=== PATIENT | female | born 1985 | race Caucasian/White ===

== ENCOUNTER → 2018-04-20 16:19 | Emergency (ER) | payer OTHER ==
[~2018-04-20 16:19] MED LIST: ValACYclovir (*) 1 GM TAB PO ONE
[2018-04-20 17:59] LABS: ABS Basophils 0 10^3/ul (0-0.2); ABS Eosinophils 0.5 10^3/ul (0-0.6); ABS Lymphocytes 1.6 10^3/ul (1.0-4.8); ABS Monocytes 0.5 10^3/ul (0-0.8); ABS Neutrophils 4.4 10^3/ul (1.5-7.7); ABS Nucleated RBC 0 10^3/ul; Hematocrit 41 % (35-47); Hemoglobin 14.2 g/dl (12.0-16.0); Lymphocyte % 22.1 % (25-47); Mean Corpuscular HGB Conc 35 g/dl (31-36); Mean Corpuscular Hemoglobin 32 pg (27-31); Mean Corpuscular Volume 91 fL (80-97); Mean Platelet Volume 8.3 um3 (7.4-10.4); Nucleated Red Blood Cells % 0; Platelet Count 248 10^3/ul (150-450); Red Blood Count 4.49 10^6/ul (4.00-5.40); Red Cell Distribution Width 14 % (10.5-15)
[2018-04-20 18:17] LABS: EGFR Non-African American 70.3 (>60)
--- NOTE | 2018-04-20 19:34 | ED ---
Skin Complaint - HPI Summary HPI Summary: 32-year-old female presents to the rash for the past week. She states it started right hip. She states that is spread since there. She states the rash is itchy. She states the vesicles and blisters that have been popping. Is not on on any medications. No new products or soaps. Was not outside. she has not been in contact with any poison cony. No fevers. No sinus congestion or cough. No other symptoms besides the rash. she did have chickenpox just younger. No history of any rheumatologic or immunologic disorders. No family history of such either. She has been taking Benadryl and calamine lotion to the area. Never had this rash before. No one else is similar rash. Daughter did have two spots but were Different than her rash. no vision changes. - History of Current Complaint Chief Complaint: EDRashSkinAbscess Time Seen by Provider: 04/20/18 17:36 Stated Complaint: BLISTERS ALL OVER BODY Hx Last Menstrual Period: IUD - current Pain Intensity: 0 - Allergy/Home Medications Allergies/Adverse Reactions: Allergies Allergy/AdvReac Type Severity Reaction Status Date / Time amoxicillin Allergy Hives Verified 04/20/18 17:02 PMH/Surg Hx/FS Hx/Imm Hx Endocrine/Hematology History: Denies: Hx Diabetes, Hx Thyroid Disease Cardiovascular History: Denies: Hx Hypertension Respiratory History: Reports: Hx Asthma - seasonal Denies: Hx Chronic Obstructive Pulmonary Disease (COPD) GI History: Denies: Hx Ulcer Infectious Disease History: No Infectious Disease History: Denies: Hx Clostridium Difficile, Hx Hepatitis, Hx Human Immunodeficiency Virus (HIV), Hx of Known/Suspected MRSA, Hx Shingles, Hx Tuberculosis, Hx Known/ Suspected VRE, Hx Known/Suspected VRSA, History Other Infectious Disease, Traveled Outside the [place] in Last 30 Days - Family History Known Family History: Positive: Unknown - Social History Alcohol Use: Rare Substance Use Type: Reports: None Smoking Status (MU): Heavy Every Day Tobacco Smoker Type: Cigarettes Amount Used/How Often: quitting down to 3-5 cigs/day Review of Systems Negative: Fever Negative: Chest Pain Negative: Shortness Of Breath Positive: Rash All Other Systems Reviewed And Are Negative: Yes Physical Exam Triage Information Reviewed: Yes Vital Signs On Initial Exam: Initial Vitals Temp Pulse Resp BP Pulse Ox 99.3 F 103 18 125/81 97 04/20/18 16:59 04/20/18 16:59 04/20/18 16:59 04/20/18 16:59 04/20/18 16:59 Vital Signs Reviewed: Yes Appearance: Positive: Well-Appearing Skin: Positive: Other - vesicles on erythematous base across body, no lesion on feet and hands, some blisters Head/Face: Positive: Normal Head/Face Inspection Eyes: Positive: Normal, EOMI, DARLIN, Conjunctiva Clear ENT: Positive: Normal ENT inspection, Pharynx normal, TMs normal Respiratory/Lung Sounds: Positive: Clear to Auscultation, Breath Sounds Present Cardiovascular: Positive: Normal, RRR Abdomen Description: Positive: Nontender, Soft Bowel Sounds: Positive: Present Musculoskeletal: Positive: Normal Neurological: Positive: Normal Psychiatric: Positive: Normal Diagnostics - Vital Signs Vital Signs Temp Pulse Resp BP Pulse Ox 04/20/18 16:59 99.3 F 103 18 125/81 97 - Laboratory Lab Results: Lab Results 04/20/18 04/20/18 Range/Units 17:51 17:51 WBC 7.0 (3.5-10.8) 10^3/ul RBC 4.49 (4.00-5.40) 10^6/ul Hgb 14.2 (12.0-16.0) g/dl Hct 41 (35-47) % MCV 91 (80-97) fL MCH 32 H (27-31) pg MCHC 35 (31-36) g/dl RDW 14 (10.5-15) % Plt Count 248 (150-450) 10^3/ul MPV 8.3 (7.4-10.4) um3 Neut % (Auto) 63.0 (38-83) % Lymph % (Auto) 22.1 L (25-47) % [place] % (Auto) 7.5 H (0-7) % Eos % (Auto) 7.0 H (0-6) % Baso % (Auto) 0.4 (0-2) % Absolute Neuts (auto) 4.4 (1.5-7.7) 10^3/ul Absolute Lymphs (auto) 1.6 (1.0-4.8) 10^3/ul Absolute Monos (auto) 0.5 (0-0.8) 10^3/ul Absolute Eos (auto) 0.5 (0-0.6) 10^3/ul Absolute Basos (auto) 0 (0-0.2) 10^3/ul Absolute Nucleated RBC 0 10^3/ul Nucleated RBC % 0 ESR 10 (0-14) mm/Hr Sodium 137 (135-145) mmol/L Potassium 4.1 (3.5-5.0) mmol/L Chloride 105 (101-111) mmol/L Carbon Dioxide 27 (22-32) mmol/L Anion Gap 5 (2-11) mmol/L BUN 10 (6-24) mg/dL Creatinine 0.93 (0.51-0.95) mg/dL Est GFR ( Amer) 85.1 (>60) Est GFR (Non-Af Amer) 70.3 (>60) BUN/Creatinine Ratio 10.8 (8-20) Glucose 95 (70-100) mg/dL Calcium 9.2 (8.6-10.3) mg/dL Total Bilirubin 0.30 (0.2-1.0) mg/dL AST 15 (13-39) U/L ALT 9 (7-52) U/L Alkaline Phosphatase 42 (34-104) U/L C-Reactive Protein 6.03 (<8.01) mg/L Total Protein 6.5 (6.4-8.9) g/dL Albumin 4.0 (3.2-5.2) g/dL Globulin 2.5 (2-4) g/dL Albumin/Globulin Ratio 1.6 (1-3) Rubella Screen Equivocal (Immune) Result Diagrams: 04/20/18 17:51 04/20/18 17:51 Lab Statement: Any lab studies that have been ordered have been reviewed, and results considered in the medical decision making process. Course/Dx - Course Course Of Treatment: 32-year-old female presents to the rash for the past week. She states it started right hip. She states that is spread since there. She states the rash is itchy. She states the vesicles and blisters that have been popping. Is not on on any medications. No new products or soaps. Was not outside. she has not been in contact with any poison cony. No fevers. No sinus congestion or cough. No other symptoms besides the rash. she did have chickenpox just younger. No history of any rheumatologic or immunologic disorders. No family history of such either. She has been taking Benadryl and calamine lotion to the area. Never had this rash before. No one else is similar rash. Daughter did have two spots but were Different than her rash. On exam has vesicles on erythematous base. She was seen at her primary who culture the wound and said it was not varicella. wbc normal. CRP and ESR are normal. mrsa negative. Culture the wound again. Discussed the patient of steroid vs antiviral and decide on antiviral. Will try and treat as either herpes or varicella with Valtrex. We'll have follow-up with dermatology. The patient understands agrees with plan. - Differential Diagnoses - Skin Complaint Differential Diagnoses: Contact Dermatitis, Poison [place], Cardona-Clint Syndrome , Varicella Zoster - Diagnoses Provider Diagnoses: Rash Discharge - Sign-Out/Discharge Documenting (check all that apply): Patient Departure - Discharge Plan Condition: Good Disposition: HOME Prescriptions: ValACYclovir (*) [Valtrex 1 GM(*)] 1 gm PO BID #9 tab Patient Education Materials: Acute Rash (ED) Forms: *Work Release Referrals: Shabbir MOISE,Gabe Garcia [Primary Care Provider] - Liliana Henriquez PA [Physician Customs Opener Verifier Packer] - Additional Instructions: will try antiviral twice a day for 5 days Follow up with dermatology Return to ED if develop any new or worsening symptoms - Billing Disposition and Condition Condition: GOOD Disposition: Home
[2018-04-20 20:11] VITALS: BP 112/65
== END | disposition home or self-care (01) ==
LOC: ED 16:19
DX: R21 Rash and other nonspecific skin eruption (principal); F17.210 Nicotine dependence, cigarettes, uncomplicated
CPT/HCPCS: 36415; 80053; 85025; 85652; 86140; 86762; 87529; 87641; 87798; 99282; A9270-GY

== ENCOUNTER 2019-03-20 10:25 | Emergency (ER) | payer OTHER ==
[2019-03-20 10:31] VITALS: BP 117/81
[2019-03-20] MEDS ORDERED: Dexamethasone TAB* 4 MG PO ONE (10:51)
--- NOTE | 2019-03-20 10:55 | UC ---
Bite Injury/Animal HPI - HPI Summary HPI Summary: Patient is a 33-year-old female here with an insect bite. Patient was at her sister's house on night when she developed a bite on her right forearm. Patient had itching at the site. On Friday morning, patient woke up and has had erythema at the site of the wound. Patient's your femur is itchy and not painful. Patient's had a fever, chills, nausea, vomiting. Patient has been doing hydrocortisone cream and Benadryl cream with mild improvement. Patient has also been icing her wound. Medications reviewed - History of Current Complaint Chief Complaint: JORDANkin Stated Complaint: SKIN COMP Time Seen by Provider: 03/20/19 10:37 Hx Obtained From: Patient Hx Last Menstrual Period: 02/19/19 Pain Intensity: 0 - Allergies/Home Medications Allergies/Adverse Reactions: Allergies Allergy/AdvReac Type Severity Reaction Status Date / Time amoxicillin Allergy Hives Verified 03/20/19 10:31 Home Medications: Home Medications NK [No Home Medications Reported] 03/20/19 [History Confirmed 03/20/19] PMH/Surg Hx/FS Hx/Imm Hx Previously Healthy: Yes - Surgical History Surgical History: None - Family History Known Family History: Positive: Unknown - Social History Alcohol Use: Rare Substance Use Type: None Smoking Status (MU): Heavy Every Day Tobacco Smoker Type: Cigarettes Amount Used/How Often: quitting down to 3-5 cigs/day - Immunization History Most Recent Tetanus Shot: out of date Review of Systems All Other Systems Reviewed And Are Negative: Yes Constitutional: Negative: Fever, Chills Skin: Positive: Rash. Negative: Bruising Eyes: Negative: Drainage ENT: Negative: Sore Throat, Nasal Discharge Respiratory: Negative: Shortness Of Breath, Cough Cardiovascular: Negative: Palpitations, Chest Pain Gastrointestinal: Negative: Vomiting, Diarrhea Physical Exam - Summary Physical Exam Summary: Vital Signs Reviewed: Yes A+Ox3, no distress Eyes: Conjunctiva Clear, PERRL. EOM intact and full ENT: Hearing grossly normal TM x 2 clear, moist, uvula midline, no exudate, no erythema Neck: Positive: Supple Respiratory: Positive: No respiratory distress, No accessory muscle use + CTA throughout no w/r Cardiovascular: RRR nl s1, s2 no m/r CBT <2 sec abd soft + BS nt/nd no guarding, no distension Musculoskeletal Exam: FLORES x 4 without difficulty Strength Intact, ROM Intact Neurological: Positive: Alert, + sensation throughout Psychological: Positive: Normal Response To Family Skin: Area of erythema at the right forearm with a bug bite distally at the wrist. Area is not warm or tender. No fluctuance or induration. Vital Signs: Initial Vital Signs Temp 98 F 03/20/19 10:29 Pulse 90 03/20/19 10:29 Resp 18 03/20/19 10:29 BP 117/81 03/20/19 10:29 Pulse Ox 100 03/20/19 10:29 Bite Injury Course/Dx - Course Course Of Treatment: Patient is here with a local reaction to a bug bite. Patient is overall well- appearing with no evidence of systemic effects. Patient was prescribed a dose of Decadron. Patient continue hydrocortisone cream, ice, elevating her arm. - Differential Dx/Diagnosis Provider Diagnosis: Bug bite Discharge ED - Sign-Out/Discharge Documenting (check all that apply): Patient Departure All imaging exams completed and their final reports reviewed: No Studies - Discharge Plan Condition: Stable Disposition: HOME Patient Education Materials: Insect Bite or Sting (ED) Referrals: Shabbir MOISE,Gabe Garcia [Primary Care Provider] - Additional Instructions: Please continue using a hydrocortisone cream, icing wound, elevating her arm when resting. Please return if you're wound becomes painful, you have fever, or any other concerning symptoms - Billing Disposition and Condition Condition: STABLE Disposition: Home
== END 2019-03-20 11:00 | disposition home or self-care (01) ==
LOC: UCEAST 10:25
DX: S50.861A Insect bite (nonvenomous) of right forearm, initial encounter (principal); W57.XXXA Bitten or stung by nonvenomous insect and other nonvenomous arthropods, initial encounter; Y92.9 Unspecified place or not applicable; Z88.0 Allergy status to penicillin; F17.210 Nicotine dependence, cigarettes, uncomplicated
CPT/HCPCS: 99212; G0463; J8540